=== PATIENT | female | born 1960 | race Caucasian/White ===

== ENCOUNTER 2017-04-22 09:11 | Emergency (ER) | payer BC ==
--- NOTE | 2017-04-22 09:14 | PDOC ---
History of Present Illness - General Chief Complaint: Chest Pain Stated Complaint: CHEST PAIN WHEN BREATHING Time Seen by Provider: 04/22/17 09:13 History Source: Patient Exam Limitations: No Limitations - History of Present Illness Initial Comments: 04/22/17 09:15 The patient is a 56-year-old female with a significant past medical history of cigarette smoking but with no other cardiovascular history, who presents to the emergency department complaining of chest pain. It began gradually yesterday, and has been constant ever since. It is a mild, dull ache. It is worse with deep inspiration, purposeful cough, movement, palpation. She denies palpitations, lightheadedness. She denies cough, fever, dyspnea. The patient denies recent travel/surgeries/immobility, lower extremity edema, calf pain or tenderness, tobacco use, hormone use, personal or family history of thrombosis. 04/22/17 09:22 Past History - Past Medical History Allergies/Adverse Reactions: Allergies Allergy/AdvReac Type Severity Reaction Status Date / Time No Known Allergies Allergy Verified 04/22/17 09:12 Home Medications: Ambulatory Orders Naproxen [Naprosyn] 500 mg PO BID PRN #20 tablet 04/22/17 Sertraline HCl [Zoloft -] 50 mg PO DAILY 04/22/17 Review of Systems - Review of Systems Comments:: 04/22/17 09:15 CONSTITUTIONAL: Absent: fever, chills, diaphoresis, generalized weakness, malaise, loss of appetite HEENT: Absent: rhinorrhea, nasal congestion, throat pain, throat swelling, difficulty swallowing, mouth swelling, ear pain, eye pain, visual Changes CARDIOVASCULAR: Present: See history of present illness Absent: loss of consciousness, palpitations, irregular heart rate, peripheral edema RESPIRATORY: Absent: cough, shortness of breath, dyspnea with exertion, orthopnea, wheezing, stridor, hemoptysis GASTROINTESTINAL: Absent: abdominal pain, abdominal distension, nausea, vomiting, diarrhea, constipation, melena, hematochezia GENITOURINARY: Absent: dysuria, frequency, urgency, hesitancy, hematuria, flank pain, genital pain MUSCULOSKELETAL: Absent: myalgia, arthralgia, joint swelling SKIN: Absent: rash, itching, pallor HEMATOLOGIC/IMMUNOLOGIC: Absent: easy bleeding, easy bruising, lymphadenopathy, frequent infections ENDOCRINE: Absent: unexplained weight gain, unexplained weight loss, heat intolerance, cold intolerance NEUROLOGIC: Absent: headache, focal weakness or paresthesias, dizziness, unsteady gait, seizure, mental status changes, bladder or bowel incontinence PSYCHIATRIC: Absent: anxiety, depression, suicidal or homicidal ideation, hallucinations. *Physical Exam - Physical Exam Comments: 04/22/17 09:16 GENERAL: Well developed, well nourished. Awake and alert. No acute distress. HEENT: Normocephalic, atraumatic. PERRLA, EOMI. No conjunctival pallor. Sclera are non- icteric. Moist mucous membranes. Oropharynx is clear. NECK: Supple. Full ROM. No JVD. Carotid pulses 2+ and symmetric, without bruits. No thyromegaly. No lymphadenopathy. CARDIOVASCULAR: There is tenderness to the left sternocostal margin. Palpation reproduces her symptoms. Regular rate and rhythm. No murmurs, rubs, or gallops. Distal pulses are 2+ and symmetric. PULMONARY: No evidence of respiratory distress. Lungs clear to auscultation bilaterally. No wheezing, rales or rhonchi. ABDOMINAL: Soft. Non-tender. Non-distended. No rebound or guarding. No organomegaly. Normoactive bowel sounds. MUSCULOSKELETAL Normal range of motion at all joints. No bony deformities or tenderness. No CVA tenderness. EXTREMITIES: No cyanosis. No clubbing. No edema. No calf tenderness. SKIN: Warm and dry. Normal capillary refill. No rashes. No jaundice. NEUROLOGICAL: Alert, awake, appropriate. Cranial nerves 2-12 intact. No deficits to light touch and temperature in face, upper extremities and lower extremities. No motor deficits in the in face, upper extremities and lower extremities. Normoreflexic in the upper and lower extremities. Normal speech. Toes are down- going bilaterally. Gait is normal without ataxia. PSYCHIATRIC: Cooperative. Good eye contact. Appropriate mood and affect. 04/22/17 09:23 ED Treatment Course - LABORATORY CBC & Chemistry Diagram: 04/22/17 09:47 04/22/17 09:47 Medical Decision Making - Medical Decision Making 04/22/17 09:16 The patient is well-appearing and in no acute distress Her pain is atypical, and does not seem consistent with acute coronary syndrome It is quite consistent with musculoskeletal chest pain, costochondritis. Will obtain labs, chest x-ray, EKG 04/22/17 09:23 04/22/17 09:36 PA and lateral chest x-ray with nodule, but no acute cardiopulmonary disease She is aware of these findings and will follow-up with her primary care physician Labs pending 04/22/17 09:41 Normal sinus rhythm at 78, normal axis, normal intervals, incomplete right bundle-branch block, no ST changes 04/22/17 10:24 Labs noted Symptoms improved Clinical impression: Musculoskeletal chest pain secondary to costochondritis I discussed the physical exam findings, ancillary test results and final diagnoses with the patient. I answered all of the patient's questions. The patient was satisfied with the care received and felt comfortable with the discharge plan and treatment plan. The patient will call their primary care physician within 24 hours to arrange follow-up and will return to the Emergency Department with any new, persistent or worsening symptoms. *DC/Admit/Observation/Transfer Diagnosis at time of Disposition: Non-cardiac chest pain - Discharge Dispostion Disposition: HOME Condition at time of disposition: Stable - Prescriptions Prescriptions: Naproxen [Naprosyn] 500 mg PO BID PRN #20 tablet PRN Reason: Pain - Referrals Referrals: Waldemar Moses MD [Staff Physician] - 7 days Rakan Haynes MD [Staff Physician] - 7 days (This orthopedist can assist in the evaluation of your chronic back pain.) - Patient Instructions Printed Discharge Instructions: DI for Atypical Chest Pain, DI for Costochondritis Additional Instructions: Return to the emergency department immediately with ANY new, persistent or worsening symptoms. You MUST call and follow up with your doctor tomorrow. Please make sure your doctor reviews the results of your emergency department evaluation. In particular, please make sure that your primary care doctor reviews your chest x-ray as he did have some evidence of a pulmonary nodule. This nodule needs to be followed up to make sure that it is not the beginning of lung cancer. Take the Naprosyn twice daily for 7 days, with food, as it should greatly improved your symptoms.
[2017-04-22 09:16] VITALS: BP 152/87; PULSE 95; TEMP 98.5; BMI 29.4
[2017-04-22] MEDS ORDERED: IBUPROFEN 400 MG TABLET (FP) PO ONE ×2 (09:24→09:36)
[2017-04-22 09:55] LABS: BASOPHIL 2.3 % (0-2.0); EOSINOPHIL 1.9 % (0-4.5); MCHC 33.6 g/dl (32.0-36.0); MEAN CELL VOLUME 92.4 fl (80-96); MEAN PLT VOLUME 8.2 fl (7.5-11.1); NEUTROPHILS 55.9 % (42.8-82.8); PLATELET COUNT 222 K/MM3 (134-434); RDW 12.2 % (11.6-15.6); WHITE BLOOD COUNT 6.7 K/mm3 (4.0-10.8)
[2017-04-22 10:02] LABS: INR 1.02 (0.82-1.09); PROTHROMBIN TIME (PATIENT) 11.4 SEC (10.2-13.0)
[2017-04-22 10:07] LABS: CPK(DFH) 54 IU/L (26-140)
[2017-04-22 10:08] LABS: ALK PHOS 70 U/L (32-92); ANION GAP 7 (8-16); BILIRUBIN,TOTAL 0.7 mg/dl (0.2-1.0); CALCIUM 9.2 mg/dl (8.4-10.2); CO2 25 mmol/L (22-28); COCKROFT - GAULT 116.4415; CREATININE 0.7 mg/dl (0.6-1.3); GLUCOSE,RANDOM 92 mg/dl (74-106); MAGNESIUM 1.9 mg/dL (1.8-2.4); SGOT/AST 16 U/L (10-42); SGPT/ALT 19 U/L (10-40); TOT PROT 6.5 g/dl (6.4-8.3)
[2017-04-22 10:21] LABS: TROPONIN I (DFP) < 0.03 ng/ml (0.03-0.50)
--- NOTE | 2017-04-24 10:44 | EKG ---
Test Reason : Blood Pressure : / mmHG Vent. Rate : 084 BPM Atrial Rate : 084 BPM P-R Int : 126 ms QRS Dur : 086 ms QT Int : 362 ms P-R-T Axes : 070 -23 039 degrees QTc Int : 427 ms NORMAL SINUS RHYTHM NONSPECIFIC T WAVE ABNORMALITY ABNORMAL ECG NO PREVIOUS ECGS AVAILABLE Confirmed by RUBEN THURMAN, MARTI ([id number]) on 04/24/2017 10:44:43 AM Referred By: MARII ABRAHAM Confirmed By:MARTI MIRANDA MD
== END 2017-04-22 10:32 | disposition home or self-care (01) ==
LOC: FER 09:11
DX: R07.89 Other chest pain (principal); F17.210 Nicotine dependence, cigarettes, uncomplicated
CPT/HCPCS: 36415; 71020-TC; 80053; 82550; 83735; 84484; 85025; 85610; 93005; 99284-25

== ENCOUNTER 2018-02-23 07:37 | Emergency (ER) | payer BC ==
[2018-02-23 07:47] VITALS: TEMP 97.9; BMI 29.9
[2018-02-23] MEDS ORDERED: SODIUM CHLORIDE 1,000 ML IV STA (09:11)
--- NOTE | 2018-02-23 09:18 | PDOC ---
History of Present Illness - General Chief Complaint: Pain Stated Complaint: SIDE PAIN Time Seen by Provider: 02/23/18 08:43 History Source: Patient, Old Records Exam Limitations: No Limitations - History of Present Illness Travel History: No Initial Comments: 02/23/18 09:14 This is a 57-year-old female with past medical history of depression who presents emergency Department with 9 days of right upper quadrant pain. Worsens with right rotation and with flexion and extension of the spine. She states she' s been taking Motrin for the pain which helps bring the pain level down. Currently pain is 5-6/10 at its worst is 8/10. Patient states been accompanied by diarrhea which has been present for more than one month. She denies any blood in her stool reports that her diarrhea has been brown until yesterday where she had a yellow diarrhea. Patient denies any nausea, vomiting, fevers, chills, chest pain, shortness of breath, dizziness, dysuria, hematuria, rectal bleeding. Patient lost her job on 02/02 and symptoms started approximately 10 days later. Past History - Past Medical History Allergies/Adverse Reactions: Allergies Allergy/AdvReac Type Severity Reaction Status Date / Time No Known Allergies Allergy Verified 02/23/18 07:44 Home Medications: Ambulatory Orders Sertraline HCl [Zoloft -] 25 mg PO DAILY 04/22/17 COPD: No Other medical history: scoliosis - Suicide/Smoking/Psychosocial Hx Smoking History: Current every day smoker Have you smoked in the past 12 months: Yes Number of Cigarettes Smoked Daily: 15 Information on smoking cessation initiated: Yes 'Breaking Loose' booklet given: 02/23/18 Hx Alcohol Use: No Drug/Substance Use Hx: No Substance Use Type: None Review of Systems - Review of Systems Able to Perform ROS?: Yes Is the patient limited Persian proficient: No Constitutional: No: Symptoms Reported HEENTM: No: Symptoms Reported Respiratory: No: Symptoms reported Cardiac (ROS): No: Symptoms Reported ABD/GI: Yes: See HPI : No: Symptoms Reported Musculoskeletal: No: Symptoms Reported Integumentary: No: Symptoms Reported Neurological: No: Symptoms reported Endocrine: No: Symptoms Reported Hematologic/Lymphatic: No: Symptoms Reported *Physical Exam - Vital Signs Last Vital Signs Temp Pulse Resp BP Pulse Ox 97.9 F 75 18 123/78 100 02/23/18 07:44 02/23/18 07:44 02/23/18 07:44 02/23/18 07:44 02/23/18 07:44 - Physical Exam General Appearance: Yes: Appropriately Dressed. No: Apparent Distress HEENT: positive: Normal ENT Inspection Neck: positive: Trachea midline, Supple Respiratory/Chest: positive: Lungs Clear, Normal Breath Sounds. negative: Respiratory Distress, Accessory Muscle Use Cardiovascular: positive: Regular Rhythm, Regular Rate, S1, S2. negative: Edema , Murmur Gastrointestinal/Abdominal: positive: Normal Bowel Sounds, Tender (Right upper quadrant tenderness present.), Soft Musculoskeletal: positive: Normal Inspection. negative: CVA Tenderness Extremity: positive: Normal Inspection, Normal Range of Motion. negative: Tender, Pelvis Stable Integumentary: positive: Normal Color, Dry, Warm Neurologic: positive: Alert, Normal Mood/Affect, Normal Response ED Treatment Course - LABORATORY CBC & Chemistry Diagram: 02/23/18 09:30 02/23/18 09:30 - RADIOLOGY Radiology Studies Ordered: Category Date Time Status ABDOMEN US -LIMITED [US] Stat Ultrasound 02/23/18 09:11 Ordered Medical Decision Making - Medical Decision Making 02/23/18 09:18 CC: Right upper quadrant pain for 9 days A/P: 57-year-old woman with history of depression and D&C 2 who presents to emergency department with 9 days of right upper quadrant pain and 1 month of brown diarrhea was turned yellow on 02/22 Abdomen is soft with tenderness to the right upper quadrant Right lower left upper and left lower quadrants nontender RRR. S1 and S2 present. No murmur, rub or gallop noted. Differential diagnoses include cholecystitis, abdominal wall muscle pain, gastroenteritis Most likely gastroenteritis giving infectious symptoms of diarrhea which have now turned yellow Basic labs, rectal quadrant ultrasound, IV fluids 02/23/18 14:50 Right upper Quadrant ultrasound as read by Dr. genao: Mild fatty infiltration of the liver versus hepatocellular disease. Please correlate with liver enzymes. A couple of simple hepatic cysts with the largest measuring 2.9 cm's. Adequately distended gallbladder without gallstones or wall thickening. Very limited visualization of the pancreatic head and body. Results of the ultrasound of the discussed with the patient. This splint to the patient that this also would like to do a CAT scan to rule out further etiology and patient is refusing at this time. Patient was choosing to leave and I will sign out the patient AGAINST MEDICAL ADVICE. It was explained to the patient that she should follow up in [facility] for continued evaluation and potential outpatient CAT scan. *DC/Admit/Observation/Transfer Diagnosis at time of Disposition: Abdominal pain Qualifiers: Abdominal location: right upper quadrant Qualified Code(s): R10.11 - Right upper quadrant pain - Discharge Dispostion Disposition: AGAINST MEDICAL ADVICE Condition at time of disposition: Guarded - Referrals - Patient Instructions Additional Instructions: Please follow-up at [address] for continued evaluation of your pain. They will be able to arrange an outpatient CAT scan for further evaluation. Take Tylenol or Motrin as needed for pain. Please follow manufacturers instructions for appropriate dosage. Well-balanced diet. Keep well-hydrated. Return to the emergency department for any worsening pain, fevers, chills, vomiting or any other concerns. - Post Discharge Activity
--- NOTE | 2018-02-23 09:41 | PDOC ---
*Physical Exam - Vital Signs Last Vital Signs Temp Pulse Resp BP Pulse Ox 97.9 F 75 18 123/78 100 02/23/18 07:44 02/23/18 07:44 02/23/18 07:44 02/23/18 07:44 02/23/18 07:44 ED Treatment Course - LABORATORY CBC & Chemistry Diagram: 02/23/18 09:30 02/23/18 09:30 Medical Decision Making - Medical Decision Making 02/23/18 11:09 Ms Daniel is a 57 yo F who presents to the ER with a complaint of right sided abd pain Present for more than 1 week No trauma, heavy lifting Located in the RUQ Worse with movement NOT worse with eating No associated nausea (+) diarrhea No fevers or chills On exam: RUQ is very tender to palpation Will do Labs US Consider CT Re assess EKG SR, rate of 55 bpm, axis nml intervals nml, t waves upright Right upper Quadrant ultrasound as read by Dr. genao: Mild fatty infiltration of the liver versus hepatocellular disease. Please correlate with liver enzymes. A couple of simple hepatic cysts with the largest measuring 2.9 cm's. Adequately distended gallbladder without gallstones or wall thickening. Very limited visualization of the pancreatic head and body. ? Colonic inflammation ? Hernia Pt unable to stay for CT scan Signed out AMA Clinical Impression: abdominal pain, initial presentation *DC/Admit/Observation/Transfer Diagnosis at time of Disposition: Abdominal pain - Discharge Dispostion Disposition: AGAINST MEDICAL ADVICE Condition at time of disposition: Guarded - Referrals - Patient Instructions Additional Instructions: Please follow-up at [address] for continued evaluation of your pain. They will be able to arrange an outpatient CAT scan for further evaluation. Take Tylenol or Motrin as needed for pain. Please follow manufacturers instructions for appropriate dosage. Well-balanced diet. Keep well-hydrated. Return to the emergency department for any worsening pain, fevers, chills, vomiting or any other concerns. - Post Discharge Activity
[2018-02-23 09:43] LABS: BASO % 0.9 % (0-2.0); EOS % 1.6 % (0-4.5); HEMATOCRIT 42.7 % (32.4-45.2); HEMOGLOBIN 14.5 GM/dL (10.7-15.3); LYMPH % 32.9 % (8-40); MCH 31.8 pg (25.7-33.7); MCHC 33.9 g/dl (32.0-36.0); MEAN CELL VOLUME 93.9 fl (80-96); MONO % 9.8 % (3.8-10.2); NEUT % 54.8 % (42.8-82.8); PLATELET COUNT 223 K/MM3 (134-434); RBC 4.55 M/mm3 (3.60-5.2); RDW 12.5 % (11.6-15.6); WHITE BLOOD COUNT 6.7 K/mm3 (4.0-10.0)
[2018-02-23 09:58] LABS: URINE APPEARANCE CLEAR; URINE BILIRUBIN NEGATIVE (<2.0 mg/dL); URINE BLOOD NEGATIVE (NEGATIVE); URINE COLOR LTYELLOW; URINE GLUCOSE (UA) NEGATIVE (NEGATIVE); URINE KETONE NEGATIVE (NEGATIVE); URINE LEUK ESTERASE NEGATIVE (NEGATIVE); URINE NITRITE NEGATIVE (NEGATIVE); URINE PROTEIN NEGATIVE (NEGATIVE); URINE UROBILINOGEN NEGATIVE mg/dL (0.2-1.0)
[2018-02-23 10:09] LABS: ALBUMIN 3.5 g/dl (3.4-5.0); ANION GAP 4 (8-16); BLOOD UREA NITROGEN 8 mg/dL (7-18); CALCIUM 9.2 mg/dL (8.5-10.1); CHLORIDE 108 mmol/L (98-107); CO2 30 mmol/L (21-32); CREATININE 0.7 mg/dL (0.55-1.02); GLUCOSE,RANDOM 87 mg/dL (74-106); POTASSIUM 5.1 mmol/L (3.5-5.1); SGOT/AST 11 U/L (15-37); SGPT/ALT 19 U/L (12-78); SODIUM 142 mmol/L (136-145)
[2018-02-23 10:10] LABS: ALK PHOS 80 U/L (45-117); BILIRUBIN,TOTAL 0.3 mg/dL (0.2-1.0); TOT PROT 6.6 g/dl (6.4-8.2)
[2018-02-23 15:21] VITALS: BP 118/70; PULSE 73
--- NOTE | 2018-02-26 11:42 | EKG ---
Test Reason : Blood Pressure : / mmHG Vent. Rate : 055 BPM Atrial Rate : 055 BPM P-R Int : 126 ms QRS Dur : 090 ms QT Int : 402 ms P-R-T Axes : 064 007 040 degrees QTc Int : 384 ms SINUS BRADYCARDIA OTHERWISE NORMAL ECG WHEN COMPARED WITH ECG OF 22-APR-2017 09:39, VENT. RATE HAS DECREASED BY 29 BPM Confirmed by TAMAR GUILLEN MD ([id number]) on 02/26/2018 11:41:48 AM Referred By: Confirmed By:TAMAR GUILLEN MD
== END 2018-02-23 15:21 | disposition left against medical advice (07) ==
LOC: JER 07:37
PROC: 3E0337Z Introduction of Electrolytic and Water Balance Substance into Peripheral Vein, Percutaneous Approach (ICD-10-PCS; principal; 2018-02-23)
DX: R10.11 Right upper quadrant pain (principal); F17.210 Nicotine dependence, cigarettes, uncomplicated; M41.9 Scoliosis, unspecified
CPT/HCPCS: 36415; 76705-TC; 80053; 81003; 83690; 85025; 93005; 93010; 99285-25; J7030

== ENCOUNTER 2018-03-08 09:31 | Emergency (ER) | payer BC, OTHER ==
[2018-03-08 09:42] VITALS: BP 133/85; PULSE 72; TEMP 98.6; BMI 29.4
[2018-03-08] MEDS ORDERED: SODIUM CHLORIDE 1,000 ML IV ONE (10:15)
[2018-03-08] MEDS ORDERED: diphenhydrAMINE HCL 25 MG CAPSULE (FP) PO ONE ×2 (10:15→10:20)
[2018-03-08 10:16] LABS: URINE APPEARANCE Clear; URINE BILIRUBIN Negative (NEGATIVE); URINE GLUCOSE (UA) Negative (NEGATIVE); URINE KETONE Negative (NEGATIVE); URINE LEUK ESTERASE Negative (NEGATIVE); URINE NITRITE Negative (NEGATIVE); URINE PROTEIN Negative (NEGATIVE); URINE UROBILINOGEN 0.2 (0.2-1.0)
[2018-03-08 10:21] LABS: URINE BLOOD Trace-intact (NEGATIVE); URINE COLOR YELLOW
[2018-03-08 10:42] LABS: EPI CELLS NONE SEEN /HPF; URINE CRYSTALS NONE SEEN /hpf (NONE SEEN); URINE RBC 0-2 /hpf (0-3); URINE WBC 0-1 (0-5)
[2018-03-08 10:53] LABS: BASO % 2.8 % (0-2.0); EOS % 1.7 % (0-4.5); HEMATOCRIT 43.2 % (32.4-45.2); HEMOGLOBIN 14.4 GM/dl (10.7-15.3); LYMPH % 30.3 % (8-40); MCH 31.1 pg (25.7-33.7); MCHC 33.3 g/dl (32.0-36.0); MEAN CELL VOLUME 93.3 fl (80-96); MEAN PLT VOLUME 8.3 fl (7.5-11.1); MONO % 9.1 % (3.8-10.2); NEUT % 56.1 % (42.8-82.8); PLATELET COUNT 248 K/MM3 (134-434); RBC 4.63 M/mm3 (3.60-5.2); WHITE BLOOD COUNT 6.9 K/mm3 (4.0-10.8)
[2018-03-08 11:14] LABS: ALBUMIN 3.8 g/dl (3.5-5.0); ALK PHOS 67 U/L (32-92); ANION GAP 3 (8-16); BILIRUBIN,TOTAL 0.5 mg/dl (0.2-1.0); BLOOD UREA NITROGEN 7 mg/dl (7-18); CHLORIDE 105 mmol/L (98-107); CO2 28 mmol/L (22-28); CREATININE 0.8 mg/dl (0.6-1.3); GLUCOSE,RANDOM 90 mg/dl (74-106); POTASSIUM 4.5 mmol/L (3.5-5.1); SGOT/AST 16 U/L (10-42); SGPT/ALT 19 U/L (10-40); SODIUM 136 mmol/L (136-145); TOT PROT 6.5 g/dl (6.4-8.3)
--- NOTE | 2018-03-08 12:09 | PDOC ---
History of Present Illness - General Chief Complaint: Pain, Acute Stated Complaint: RIGHT FLANK PAIN Time Seen by Provider: 03/08/18 09:45 History Source: Patient Exam Limitations: No Limitations - History of Present Illness Initial Comments: 03/08/18 11:55 Healthy 57-year-old female with history of mild depression presents with about one month of persistent right flank/rib pain. Patient reports atraumatic sharp discomfort to her right lower ribs, worse with palpation and positional changes , not associated with any cough or dyspnea, chest pain, by mouth intake, nausea or vomiting, diarrhea or constipation, hematuria or dysuria or frequency. The patient was seen on 02/23 in the ED for the symptoms, labs, urinalysis, right upper quadrant ultrasound were unremarkable except for some hepatic cysts and fatty liver. A CAT scan was recommended at that time per the patient's signed out AGAINST MEDICAL ADVICE. Patient presents today for further evaluation of persistent symptoms. The pain is mild, it lasts all day long every day, and it is very positional. It is relieved with anti-inflammatories, and she continues to have a negative review of systems except for morning diarrhea. Patient states this has been going on for about 2 months, noting 2-3 episodes of watery diarrhea in the morning without blood, and then she is fine for the rest of the day. She has some slight cramping with the diarrhea but otherwise no persistent or focal abdominal pain. She does smoke, she does not drink alcohol. She does not see doctors and has not yet had a colonoscopy. Past History - Past Medical History Allergies/Adverse Reactions: Allergies Allergy/AdvReac Type Severity Reaction Status Date / Time No Known Allergies Allergy Verified 03/08/18 09:36 Home Medications: Ambulatory Orders Sertraline HCl [Zoloft -] 25 mg PO DAILY 04/22/17 COPD: No - Suicide/Smoking/Psychosocial Hx Smoking History: Current every day smoker Have you smoked in the past 12 months: Yes Number of Cigarettes Smoked Daily: 20 Information on smoking cessation initiated: Yes 'Breaking Loose' booklet given: 02/23/18 Hx Alcohol Use: No Drug/Substance Use Hx: No Substance Use Type: None Review of Systems - Review of Systems Constitutional: No: Chills, Fever, Night Sweats, Unintentional Wgt. Loss Respiratory: No: Cough, Orthopnea, Shortness of Breath, SOB with Exertion Cardiac (ROS): No: Chest Pain, Edema, Lightheadedness, Palpitations, Syncope ABD/GI: Yes: Diarrhea. No: Constipated, Nausea, Vomiting Musculoskeletal: Yes: Back Pain. No: Muscle Pain Integumentary: No: Rash Neurological: No: Headache Endocrine: No: Unexplained Weight Gain, Unexplained Weight Loss All Other Systems: Reviewed and Negative *Physical Exam - Vital Signs Last Vital Signs Temp Pulse Resp BP Pulse Ox 98.6 F 72 18 133/85 100 03/08/18 09:32 03/08/18 09:32 03/08/18 09:32 03/08/18 09:32 03/08/18 09:32 - Physical Exam Comments: 03/08/18 11:58 vital signs normal GENERAL: The patient is awake, alert, and fully oriented, in no acute distress. Well-appearing speaking full sentences and ambulating comfortably throughout department. HEAD: Normal with no signs of trauma. EYES: PERRL, EOMI, sclera anicteric, conjunctiva clear with no pallor. ENT: oropharynx clear without exudates. Moist mucous membranes. NECK: Normal range of motion, supple without lymphadenopathy, JVD, or masses. CHEST: Reproducible and pinpoint tenderness over the distal/lateral aspect of the second to last right rib, predominantly over the cartilaginous area. There is no overlying crepitus or rash or bruising, no palpable hematoma. LUNGS: Breath sounds equal, clear to auscultation bilaterally. No wheeze/ crackles. HEART: Regular rate and rhythm, normal S1 and S2 without murmur or rub. ABDOMEN: Soft/nondistended. BS wnl. Nonspecific right-sided abdominal discomfort without guarding or rebound. No palpable masses. No hepatosplenomegaly. No CVA tenderness. EXTREMITIES: Normal range of motion, no edema. 2+ distal pulses. No cords, erythema, or tenderness. NEUROLOGICAL: Cranial nerves II through XII grossly intact. Normal speech, normal gait. PSYCH: Normal mood, normal affect. SKIN: Warm, Dry, no rashes or lesions noted. ED Treatment Course - LABORATORY CBC & Chemistry Diagram: 03/08/18 10:20 03/08/18 10:20 - ADDITIONAL ORDERS Additional order review: Laboratory Results 03/08/18 03/08/18 10:20 09:52 Sodium 136 Potassium 4.5 Chloride 105 Carbon Dioxide 28 Anion Gap 3 L BUN 7 D Creatinine 0.8 Creat Clearance w eGFR > 60 Random Glucose 90 Calcium 9.0 Total Bilirubin 0.5 D AST 16 ALT 19 Alkaline Phosphatase 67 Total Protein 6.5 Albumin 3.8 Urine Color Yellow Urine Appearance Clear Urine pH 6.0 Ur Specific [place] 1.010 Urine Protein Negative Urine Glucose (UA) Negative Urine Ketones Negative Urine Blood Trace-intact H Urine Nitrite Negative Urine Bilirubin Negative Urine Urobilinogen 0.2 Ur Leukocyte Esterase Negative Urine RBC 0-2 Urine WBC 0-1 Ur Epithelial Cells None seen Urine Crystals None seen 03/08/18 10:20 RBC 4.63 MCV 93.3 MCHC 33.3 RDW 12.0 MPV 8.3 Neutrophils % 56.1 Lymphocytes % 30.3 Monocytes % 9.1 Eosinophils % 1.7 Basophils % 2.8 H - RADIOLOGY Radiology Studies Ordered: Category Date Time Status ABDOMEN & PELVIS CT WITH CONTR [CT] Stat CT Scan 03/08/18 10:15 Ordered - Medications Given in the ED: ED Medications Discontinued Medications Generic Name Dose Route Start Last Admin Trade Name Freq PRN Reason Stop Dose Admin Diphenhydramine HCl 25 mg 03/08/18 10:15 03/08/18 10:34 Benadryl - PO 03/08/18 10:16 25 mg ONCE ONE Administration Sodium Chloride 1,000 mls @ 1,000 mls/hr 03/08/18 10:15 03/08/18 10:34 Normal Saline - IV 03/08/18 11:14 1,000 mls/hr ONCE ONE Administration Medical Decision Making - Medical Decision Making 03/08/18 12:09 57-year-old female with subacute right-sided pain, seems most consistent with musculoskeletal etiology, specifically rib contusion/strain/cartilage injury. Lower suspicion for etiology, but will rule out intra-abdominal process given prior suspicion. Patient is a smoker but has no constitutional symptoms, abdominal exam is benign. Labs, urinalysis CT of the abdomen and pelvis Declines pain medication Reassess 03/08/18 12:47 Labs and urinalysis are within normal limits, CAT scan shows no acute pathology and only hepatic cysts as previously noted on ultrasound. Patient's exam is unchanged and reassuring, she feels well and looks well. Reassured, will continue NSAIDs as needed for rib pain, follow-up with PCP if symptoms persist or worsen. Nonspecific morning diarrhea, can give GI referral. We'll give PCP referral to our clinic, she understands return criteria. *DC/Admit/Observation/Transfer Diagnosis at time of Disposition: Rib pain on right side - Discharge Dispostion Disposition: HOME Condition at time of disposition: Stable - Referrals Referrals: Miguel Brewster MD [Staff Physician] - Chris Willams MD [Staff Physician] - - Patient Instructions Printed Discharge Instructions: Smoking Cessation, DI for Rib Contusion, DI for Diarrhea and Traveler's Diarrhea -- Adult Additional Instructions: Activity as tolerated. Stay hydrated. Tylenol 1000 mg every 8 hours and/or ibuprofen 600 mg every 8 hours as needed for pain. Blood tests, a urine test, and a CAT scan of the abdomen and pelvis showed no acute abnormalities other than liver cysts that were previously noted. Continue your medications as previously prescribed by your physician. You should follow up with a primary doctor as soon as possible regarding today' s emergency department visit. Consider calling Dr. Brewster to establish primary care follow-up. You can also see a instrument fitter regarding diarrhea, consider calling Dr. Willams. Return to the emergency department for any new or concerning symptoms, particularly persistent or worsening pain, shortness of breath, redness or swelling, bloody vomit or stool, fevers or chills, weight loss. - Post Discharge Activity
[2018-03-08 12:20] LABS: LIPASE 145 U/L (73-393)
== END 2018-03-08 12:57 | disposition home or self-care (01) ==
LOC: FER 09:31
PROC: 3E0337Z Introduction of Electrolytic and Water Balance Substance into Peripheral Vein, Percutaneous Approach (ICD-10-PCS; principal; 2018-03-08)
DX: R07.81 Pleurodynia (principal); F17.210 Nicotine dependence, cigarettes, uncomplicated
CPT/HCPCS: 36415; 74177-TC; 80053; 81003; 81015; 83690; 85025; 87086; 99283-25; J7030

== ENCOUNTER 2022-06-06 11:12 | Emergency (ER) | payer OTHER ==
[2022-06-06 11:54] VITALS: TEMP 98.3; BMI 26.1
[2022-06-06 12:54] LABS: HEMATOCRIT 42.3 % (32.4-45.2); HEMOGLOBIN 14.8 G/dL (10.7-15.3); MEAN CELL VOLUME 94.4 fl (80-96); PLATELET COUNT 239.1 10^3/uL (134-434); RBC 4.48 10^6/uL (3.60-5.2); RDW 13.1 % (11.6-15.6); WHITE BLOOD COUNT 8.8 10^3/uL (4.0-10.8)
[2022-06-06 13:10] LABS: ALBUMIN 3.9 g/dl (3.4-5.0); ALK PHOS 63 U/L (45-117); BILIRUBIN,TOTAL 0.7 mg/dl (0.2-1); CALCIUM 9.7 mg/dl (8.5-10); CO2 27 mmol/L (21-32); CREATININE 0.8 mg/dl (0.55-1.3); GLUCOSE,RANDOM 95 mg/dl (74-106); SGOT/AST 14 U/L (15-37); SGPT/ALT 13 U/L (13-61); SODIUM 141 mmol/L (136-145); TOT PROT 6.7 g/dl (6.4-8.2)
[2022-06-06 15:02] LABS: CHLORIDE 110 mmol/L (98-107)
[2022-06-06 15:03] LABS: ANION GAP 8 MMOL/L (8-16)
[2022-06-06 15:50] LABS: PLATELET ESTIMATE ADEQUATE
[2022-06-06 16:33] VITALS: BP 133/88; PULSE 99
== END 2022-06-06 16:33 | disposition home or self-care (01) ==
LOC: FER 11:12
DX: R10.11 Right upper quadrant pain (principal); K76.89 Other specified diseases of liver
CPT/HCPCS: 36415; 71046-TC-FY; 76705-TC; 80053; 83690; 84484; 85025; 93005; 99285-25

== ENCOUNTER 2023-07-29 09:39 | Emergency (ER) | payer OTHER ==
[2023-07-29 09:53] VITALS: BP 181/102; PULSE 88; RESP 18; TEMP 98.3; BMI 26.2
== END 2023-07-29 10:29 | disposition home or self-care (01) ==
LOC: FER 09:39
DX: K08.89 Other specified disorders of teeth and supporting structures (principal); K04.7 Periapical abscess without sinus
CPT/HCPCS: 99282-25

== ENCOUNTER 2025-02-22 10:01 | Emergency (ER) | payer OTHER ==
[2025-02-22 10:14] VITALS: BP 164/96; PULSE 80; RESP 16; TEMP 97.9; BMI 26.2
[2025-02-22] MEDS: ENALAPRIL MALEATE 5 MG TABLET PO ONE (10:55)
== END 2025-02-22 10:57 | disposition home or self-care (01) ==
LOC: FER 10:01
DX: I10 Essential (primary) hypertension (principal)
CPT/HCPCS: 99283-25